=== PATIENT | female | born 2000 ===

== ENCOUNTER 2021-06-24 13:34 | Emergency (ER) | payer SELFPAY ==
[2021-06-24] MEDS ORDERED: predniSONE 20 MG TAB PO NR (15:00)
[2021-06-24] MEDS ORDERED: CLINDAMYCIN 300 MG CAP PO NR (15:00)
[2021-06-24] MEDS ORDERED: IBUPROFEN 800 MG TAB PO NR (15:00)
--- NOTE | 2021-06-24 15:12 | Emergency Department Report ---
ED ENT HPI - General Chief complaint: Dental/Oral Stated complaint: LT FACIAL PAIN Time Seen by Provider: 06/24/21 14:18 Source: patient Mode of arrival: Ambulatory Limitations: No Limitations - History of Present Illness Initial comments: This is a 21-year-old female nontoxic, well nourished in appearance, no acute signs of distress presents to the ED with c/o of left lower toothache times several weeks.. Patient denies following up with a dentist. Patient stated that pain radiates from his job to his left side of head. Patient otherwise denies any head trauma. Patient describes toothache as aching level of 8 out of 10. Patient stated has some facial swelling. Patient denies any numbness, tingling, fever, chills, headache, stiff neck, abdominal pain, chest pain, shortness of breath. Patient denies any drug allergies or significant past medical history. MD complaint: tooth pain -: week(s) Location: tooth # 1 - Pain here Severity: mild Severity scale (0 -10): 8 Quality: aching Consistency: constant Improves with: none Worsens with: none Associated Symptoms: gum swelling, toothache. denies: fever, cough, pain with swallowing, sore throat, tinnitus, hearing loss, discharge from ear, rhinorrhea - Related Data Previous Rx's Medication Instructions Recorded Last Taken Type Chlorhexidine Mouthwash [Peridex] 15 ml MM BID #1 bottle 06/24/21 Unknown Rx Clindamycin [Clindamycin CAP] 300 mg PO Q8H #21 cap 06/24/21 Unknown Rx Naproxen 500 mg PO Q12H PRN #12 tablet 06/24/21 Unknown Rx Allergies Allergy/AdvReac Type Severity Reaction Status Date / Time No Known Allergies Allergy Unverified 06/24/21 14:37 ED Dental HPI - General Chief complaint: Dental/Oral Stated complaint: LT FACIAL PAIN Time Seen by Provider: 06/24/21 14:18 Source: patient Mode of arrival: Ambulatory Limitations: No Limitations - Related Data Previous Rx's Medication Instructions Recorded Last Taken Type Chlorhexidine Mouthwash [Peridex] 15 ml MM BID #1 bottle 06/24/21 Unknown Rx Clindamycin [Clindamycin CAP] 300 mg PO Q8H #21 cap 06/24/21 Unknown Rx Naproxen 500 mg PO Q12H PRN #12 tablet 06/24/21 Unknown Rx Allergies Allergy/AdvReac Type Severity Reaction Status Date / Time No Known Allergies Allergy Unverified 06/24/21 14:37 ED Review of Systems ROS: Stated complaint: LT FACIAL PAIN Other details as noted in HPI Comment: All other systems reviewed and negative Constitutional: denies: chills, fever Eyes: denies: eye pain, eye discharge, vision change ENT: dental pain. denies: ear pain, throat pain, hearing loss, epistaxis, congestion Respiratory: denies: cough, shortness of breath, wheezing Cardiovascular: denies: chest pain, palpitations Endocrine: no symptoms reported Gastrointestinal: denies: abdominal pain, nausea, diarrhea Genitourinary: denies: urgency, dysuria, discharge Musculoskeletal: denies: back pain, joint swelling, arthralgia Skin: denies: rash, lesions Neurological: denies: headache, weakness, paresthesias Psychiatric: denies: anxiety, depression Hematological/Lymphatic: denies: easy bleeding, easy bruising ED Past Medical Hx - Past Medical History Previous Medical History?: No - Surgical History Past Surgical History?: No - Medications Home Medications: Home Medications Medication Instructions Recorded Confirmed Last Taken Type Chlorhexidine Mouthwash [Peridex] 15 ml MM BID #1 bottle 06/24/21 Unknown Rx Clindamycin [Clindamycin CAP] 300 mg PO Q8H #21 cap 06/24/21 Unknown Rx Naproxen 500 mg PO Q12H PRN #12 tablet 06/24/21 Unknown Rx ED Physical Exam - General Limitations: No Limitations General appearance: alert, in no apparent distress - Head Head exam: Present: atraumatic, normocephalic - Eye Eye exam: Present: normal appearance - Expanded ENT Exam Expanded Ear exam: Present: normal external inspection Mouth exam: Present: normal external inspection, tongue normal. Absent: drooling, trismus, muffled voice Teeth exam: Present: dental caries, fractured tooth #, dental tenderness #, gingival enlargement, other (Some left lower mandible swelling with no induration or fluctuance.) 1 - Dental Tenderness Throat exam: Positive: normal inspection, other (Uvula midline.). Negative: tonsillar erythema, tonsillomegaly, tonsillar exudate, R peritonsillar mass, L peritonsillar mass - Neck Neck exam: Present: normal inspection, full ROM. Absent: tenderness, meningismus, lymphadenopathy - Respiratory Respiratory exam: Absent: respiratory distress - Cardiovascular Cardiovascular Exam: Present: regular rate - Extremities Exam Extremities exam: Present: full ROM - Back Exam Back exam: Present: full ROM - Neurological Exam Neurological exam: Present: alert, oriented X3, normal gait - Expanded Neurological Exam Expanded Patient oriented to: Present: person, place, time Cranial nerves: EOM's Intact: Normal, Facial Sensation: Normal Cerebellar function: Finger to Nose: Normal Upper motor neuron: Pronator Drift: Normal, Sensory Extinction: Normal Motor strength exam: RUE: 5, LUE: 5, RLE: 5, LLE: 5 Best Eye Response ([place]): (4) open spontaneously Best Motor Response ([place]): (6) obeys commands Best Verbal Response ([place]): (5) oriented [place] Total: 15 - Psychiatric Psychiatric exam: Present: normal affect, normal mood - Skin Skin exam: Present: warm, dry, intact, normal color. Absent: rash ED Course Vital Signs 06/24/21 06/24/21 06/24/21 14:08 14:50 15:11 Temperature 98.8 F Pulse Rate 87 Respiratory 16 16 Rate Blood Pressure 142/82 O2 Sat by Pulse 100 99 Oximetry - Reevaluation(s) Reevaluation #1: 06/24/21 15:14 Patient is speaking in full sentences with no signs of distress noted. ED Medical Decision Making - Medical Decision Making This is a 21-year-old female that presents with dental abscess. Patient is stable and was examined by me. There is slight swelling to the left lower mandible. Physical exam does not show an abscess but mostly abscess formation. Patient had strict instructions to follow-up with oral maxillary surgeon in 24 hours or if symptoms would worsen to return to emergency room as was possible. Patient is discharged with Clinda. Patient recieved Motrin for pain which stated symtpoims improved and subsided. Stated headaches has resovled. Patient was instructed not to operate any machinery when taking Ultram due to drowsiness. At time of discharge, the patient does not seem toxic or ill in appearance. No acute signs of distress noted. Patient agrees to discharge treatment plan of care. No further questions noted by the patient. Critical care attestation.: If time is entered above; I have spent that time in minutes in the direct care of this critically ill patient, excluding procedure time. ED Disposition Clinical Impression: Dental abscess Disposition: HOME / SELF CARE / HOMELESS Is pt being admited?: No Does the pt Need Aspirin: No Condition: Stable Instructions: Dental Abscess Additional Instructions: Follow-up with a oral surgeon in 24 hours or if symptoms worsen and continue return to emergency room as soon as possible. 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[employer] Address: [facility] [address] [facility] [address], [place] [address] Hours: Wednesday Closed Wednesday 8AM-1PM, 2-5PM Wednesday 8AM-1PM, 2-5PM Wednesday 8AM-1PM, 2-5PM 8AM-1PM, 2-5PM Wednesday 7AM-2PM Wednesday Closed Prescriptions: Clindamycin [Clindamycin CAP] 300 mg PO Q8H #21 cap Naproxen 500 mg PO Q12H PRN #12 tablet PRN Reason: Pain , Severe (7-10) Chlorhexidine Mouthwash [Peridex] 15 ml MM BID #1 bottle Referrals: PRIMARY MD KAUR [Referring] - 3-5 Days TEMI BRONSON MD [Staff Physician] - 3-5 Days [facility] [Outside] - 3-5 Days [facility] [Outside] - 3-5 Days Forms: Work/School Release Form(ED) Time of Disposition: 15:18
[2021-06-24 15:14] VITALS: BP 111/63
== END 2021-06-24 15:49 | disposition home or self-care (01) ==
LOC: ED 13:34
DX: K04.7 Periapical abscess without sinus (principal)
CPT/HCPCS: 99282; J7512